=== PATIENT | male | born 1985 ===

== ENCOUNTER 2018-08-02 03:23 | Emergency (ER) | payer BC ==
[2018-08-02 03:50] VITALS: BP 159/108; PULSE 100; RESP 17; TEMP 97.6; O2SAT 97
--- NOTE | 2018-08-02 04:21 | ED PDOC ---
HPI: Psych/Substance Abuse Time Seen by Provider: 08/02/18 03:59 Chief Complaint (Nursing): Alcohol Ingestion Chief Complaint (Provider): Alcohol Use History/Exam Limitations: no limitations (Pt presents after being brought in by EMS for alcohol intoxication. During examination, pt is speaking in lucid and clear terms, his gaze is normal and unlabored, his gait is strong and straight.) Past Medical History Reviewed: Historical Data, Nursing Documentation, Vital Signs Vital Signs: Last Vital Signs Temp 97.6 F 08/02/18 03:44 Pulse 100 H 08/02/18 03:44 Resp 17 08/02/18 03:44 BP 159/108 H 08/02/18 03:44 Pulse Ox 97 08/02/18 03:44 - Family History Family History: States: Unknown Family Hx - Allergies Allergies/Adverse Reactions: Allergies Allergy/AdvReac Type Severity Reaction Status Date / Time No Known Allergies Allergy Verified 08/02/18 03:50 Review of Systems ROS Statement: Except As Marked, All Systems Reviewed And Found Negative (Pt denies all ROS) Physical Exam - Reviewed Nursing Documentation Reviewed: Yes Vital Signs Reviewed: Yes - Physical Exam Appears: Positive for: Well, Non-toxic, No Acute Distress. Negative for: Uncomfortable Head Exam: Positive for: ATRAUMATIC, NORMAL INSPECTION Skin: Positive for: Normal Color, Warm, Dry. Negative for: Diaphoresis, Pallor, Rash Eye Exam: Positive for: Normal appearance, PERRL. Negative for: Nystagmus, Periorbital swelling, Periorbital tenderness Neck: Positive for: Normal, Painless ROM, Supple. Negative for: Decreased ROM Cardiovascular/Chest: Positive for: Regular Rate, Rhythm Respiratory: Positive for: Normal Breath Sounds Pulses-Carotid (L): 2+ Pulses-Carotid (R): 2+ Pulses-Radial (L): 2+ Pulses-Radial (R): 2+ - ECG O2 Sat by Pulse Oximetry: 97 Medical Decision Making Medical Decision Making: I: Alcohol Consumption P: test for sobriety. On evaluation pt is speaking in lucid and clear terms, his gaze is normal and unlabored, his gait is strong and straight. Pt is requesting discharge Pt is stable Pt is safe for discharge pending acceptable vitls Disposition - Clinical Impression Clinical Impression: Alcohol use - Patient ED Disposition Is Patient to be Admitted: No Counseled Patient/Family Regarding: Diagnosis - Disposition Disposition: Routine/Home Disposition Time: 04:22 Condition: STABLE
== END 2018-08-02 04:53 | disposition home or self-care (01) ==
LOC: H.ER 03:23
DX: F10.10 Alcohol abuse, uncomplicated (principal)